=== PATIENT | female | born 1950 | race Caucasian/White ===

== ENCOUNTER → 2021-03-15 | Outpatient (CLI) | payer OTHER | LOC: M.MRI 13:46 | PROVIDERS: ATTEND Family Medicine | DX: M47.26 Other spondylosis with radiculopathy, lumbar region (principal); M51.16 Intervertebral disc disorders with radiculopathy, lumbar region; G96.191 Perineural cyst; G93.0 Cerebral cysts; M48.061 Spinal stenosis, lumbar region without neurogenic claudication ==

== ENCOUNTER → 2021-11-02 | Outpatient (CLI) | payer OTHER | LOC: M.PC 09:19 | PROVIDERS: ATTEND Family Medicine | DX: M47.26 Other spondylosis with radiculopathy, lumbar region (principal); M54.50 Low back pain, unspecified; I10 Essential (primary) hypertension; E78.5 Hyperlipidemia, unspecified; K21.9 Gastro-esophageal reflux disease without esophagitis; I26.99 Other pulmonary embolism without acute cor pulmonale; M51.16 Intervertebral disc disorders with radiculopathy, lumbar region; M48.061 Spinal stenosis, lumbar region without neurogenic claudication; G96.191 Perineural cyst ==